=== PATIENT | female | born 1965 | race Caucasian/White ===

== ENCOUNTER 2023-08-07 08:44 | Emergency (ER) | payer OTHER ==
[~2023-08-07] VITALS: Ht 182.9 cm; Wt 147.4 kg
[~2023-08-07 08:44] MED LIST: IBUP-1969; THYR65TA2
[2023-08-07 08:45] VITALS: BP_SYST 156; PULSE 87; RESP 18; TEMP 97.2; O2SAT 100
[2023-08-07] MEDS ORDERED: KETOROLAC TROMETHAMINE 30 MG VIAL IM ONE (09:15)
[2023-08-07 10:21] LABS: BILIRUBIN,URINE NEGATIVE (NEGATIVE); BLOOD, URINE NEGATIVE (NEGATIVE); CLARITY/URINE CLEAR (CLEAR); COLOR,URINE YELLOW (YELLOW); GLUCOSE,URINE NEGATIVE (NEGATIVE); KETONES,URINE NEGATIVE (NEGATIVE); LEUKOCYTE ESTERASE ,URINE NEGATIVE (NEGATIVE); NITRITE, URINE POSITIVE (NEGATIVE); PROTEIN URINE NEGATIVE (NEGATIVE)
[2023-08-07 10:56] LABS: BACTERIA,URINE MANY /HPF (None Seen); RBC,URINE NONE SEEN /HPF (0-3); WBC,URINE 0-3 /HPF (0-3)
[2023-08-07] MEDS ORDERED: NITR-85 PO (11:59)
[2023-08-07] MEDS ORDERED: IBUP-1969 PO (11:59)
[2023-08-07] MEDS ORDERED: ACET-2634 PO (11:59)
[2023-08-07 12:18] VITALS: BP_SYST 156; PULSE 87; RESP 18; TEMP 97.2; O2SAT 100
== END 2023-08-07 12:18 | disposition home or self-care (01) ==
LOC: SED 08:44
DX: G89.29 Other chronic pain (principal); M54.50 Low back pain, unspecified; I10 Essential (primary) hypertension; Z79.899 Other long term (current) drug therapy
CPT/HCPCS: 99284; 81001; 87086; 72100; 72170; 96372; 81000; 81015; J1885

== ENCOUNTER 2023-08-23 12:38 | Emergency (ER) | payer OTHER ==
[~2023-08-23] VITALS: Ht 182.9 cm; Wt 160.6 kg
[~2023-08-23 12:38] MED LIST changes: +ACET-2634 PO; +IBUP-1969 PO; +NITR-85 PO
[2023-08-23 13:10] VITALS: BP_SYST 138; PULSE 80; RESP 18; TEMP 97.8; O2SAT 98
[2023-08-23 14:13] LABS: BASOPHILS # (AUTO) 0.1 K/uL (0.0-0.2); BASOPHILS % (AUTO) 0.8 % (0.0-2.0); EOSINOPHILS # (AUTO) 0.2 K/uL (0.0-0.4); EOSINOPHILS % (AUTO) 2.5 % (0.0-4.0); HEMATOCRIT 40.6 % (36-48); HEMOGLOBIN 13.7 g/dL (12.0-16.0); LYMPHOCYTES # (AUTO) 1.8 K/uL (1.0-5.5); MEAN CORPUSCULAR HEMOGLOBIN 28 pg (27-31); MEAN CORPUSCULAR HGB CONC 34 % (32-36); MEAN CORPUSCULAR VOLUME 82 fL (79.0-98.0); MONOCYTES # (AUTO) 0.4 K/uL (0.0-1.0); MONOCYTES % (AUTO) 5.4 % (1.7-9.3); NEUTROPHILS # (AUTO) 5.7 K/uL (1.8-7.7); NEUTROPHILS % (AUTO) 69.3 % (40.0-70.0); PLATELET COUNT (AUTO) 173 K/uL (130-430); RED BLOOD CELL COUNT(AUTO) 4.93 MIL/uL (4.2-6.2); RED CELL DISTRIBUTION WIDTH 15.7 % (9.0-15.0); WHITE BLOOD COUNT (AUTO) 8.2 K/uL (4.8-10.8)
[2023-08-23 14:28] LABS: CALCIUM 8.7 mg/dL (8.4-11.0); CREATININE 0.78 mg/dL (0.55-1.30)
[2023-08-23] MEDS ORDERED: ONDANSETRON 4 MG ODT TAB PO ONE (15:30)
[2023-08-23] MEDS ORDERED: MORPHINE 4 MG INJ. 4 MG/ML VIAL IVP ONE (15:30)
[2023-08-23] MEDS ORDERED: MORPHINE 4 MG INJ. 4 MG/ML VIAL IM ONE (15:45)
[2023-08-23] MEDS ORDERED: HYDR-3921 PO (16:36)
[2023-08-23] MEDS ORDERED: IBUP-1969 PO (16:36)
[2023-08-23 16:56] VITALS: BP_SYST 123; PULSE 72; RESP 16; TEMP 97.8; O2SAT 100
== END 2023-08-23 16:47 | disposition home or self-care (01) ==
LOC: SED 12:38
DX: G89.29 Other chronic pain (principal); M54.50 Low back pain, unspecified; I10 Essential (primary) hypertension; Z79.899 Other long term (current) drug therapy
CPT/HCPCS: 99285; 72131; 80048; 85025; 36415; 76376; 96372; Q0162; J2270